=== PATIENT | male | born 1960 | race Caucasian/White ===

== ENCOUNTER 2016-09-05 14:32 | Emergency (ER) | payer BC ==
[2016-09-05 14:43] VITALS: TEMP 96.3
[2016-09-05] MEDS ORDERED: methylPREDNISolone ACETATE 80 MG/ML VIAL IM ONE (14:58)
--- NOTE | 2016-09-05 15:32 | ED.PDOC ---
History of Present Illness - General Chief Complaint: Allergic Reaction Stated Complaint: rash Time Seen by Provider: 09/05/16 14:56 Source: patient Exam Limitations: no limitations Additional Information: RASH ON TRUNK, BUE, BLE. VERY ITCHY. NO DYSPNEA. NO COUGH. TOOK CLARITIN; DIDN'T HELP RASH. POSSIBLE CAUSE: ATE A NEW HONEY TODAY. - History of Present Illness Severity: moderate Improving Factors: nothing Worsening Factors: nothing Allergies/Adverse Reactions: Allergies NO KNOWN ALLERGY Allergy (Verified 09/05/16 14:43) Home Medications: Ambulatory Orders Lipitor 09/05/16 Methylprednisolone [Medrol Dose Wu] 4 mg PO DAILY #1 tab 09/05/16 Triamcinolone 0.5% Cream [Kenalog 0.5% Cream] 15 gm TOP QID PRN #2 tube Review of Systems - Review of Systems Constitutional: Denies: chills, diaphoresis, fever EENTM: Denies: ear pain, throat pain, throat swelling, mouth pain, mouth swelling Respiratory: Denies: cough, short of breath, stridor, wheezing Cardiology: States: no symptoms reported Gastrointestinal/Abdominal: States: no symptoms reported Genitourinary: States: no symptoms reported Musculoskeletal: States: no symptoms reported Skin: States: rash Neurological: States: no symptoms reported Endocrine: States: no symptoms reported Hematologic/Lymphatic: States: no symptoms reported All other Systems: Reviewed and Negative Past Medical History (General) - Vaccination History Hx Influenza Vaccination: No - Social History Hx Tobacco Use: Yes Family Medical History - Family History Father Family History: Unknown Living Status: Unknown Physical Exam - Physical Exam General Appearance: Alert, Comfortable, No apparent distress Eye Exam: bilateral normal Ears, Nose, Throat: hearing grossly normal, normal ENT inspection, normal pharynx Neck: non-tender, full range of motion, supple Respiratory: chest non-tender, lungs clear, normal breath sounds, no respiratory distress, no accessory muscle use Cardiovascular/Chest: normal peripheral pulses, regular rate, rhythm, no edema, no JVD Peripheral Pulses: radial,right: 2+, radial,left: 2+ Gastrointestinal/Abdominal: normal bowel sounds, non tender, soft Extremity: normal range of motion, non-tender 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 SPARING FACE. NO WHEALS. NO PAPULES. NO PUSTULES., rash Lymphatic: no adenopathy Progress - Progress Progress: 09/05/16 15:34 NO EVIDENCE OF ANAPHYLAXIS. Departure - Departure Clinical Impression: Urticaria Disposition: Discharge to Home or Self Care Condition: Good Departure Forms: ED Discharge - Pt. Copy, Patient Portal Self Enrollment Diet: resume usual diet Activity: increase activity as tolerated Prescriptions: Triamcinolone 0.5% Cream [Kenalog 0.5% Cream] 15 gm TOP QID PRN #2 tube PRN Reason: Rash Methylprednisolone [Medrol Dose Wu] 4 mg PO DAILY #1 tab Home Medications: Ambulatory Orders Lipitor 09/05/16 Methylprednisolone [Medrol Dose Wu] 4 mg PO DAILY #1 tab 09/05/16 Triamcinolone 0.5% Cream [Kenalog 0.5% Cream] 15 gm TOP QID PRN #2 tube Additional Instructions: Please return to the ER should you develop any shortness of breath.
[2016-09-05 15:49] VITALS: BP 132/90; O2SAT 95
== END 2016-09-05 15:47 | disposition home or self-care (01) ==
LOC: ER 14:32
DX: L50.9 Urticaria, unspecified (principal); Z87.891 Personal history of nicotine dependence

== ENCOUNTER → 2017-04-14 | Outpatient (CLI) | payer BC | END | disposition home or self-care (01) | LOC: GMAH 10:07 | PROVIDERS: ATTEND Family Medicine | DX: Z12.5 Encounter for screening for malignant neoplasm of prostate (principal); E78.2 Mixed hyperlipidemia ==

== ENCOUNTER → 2017-10-10 | Outpatient (CLI) | payer BC | LOC: GMAH 11:29 | PROVIDERS: ATTEND Family Medicine | DX: Z00.00 Encounter for general adult medical examination without abnormal findings (principal); Z12.5 Encounter for screening for malignant neoplasm of prostate; Z12.11 Encounter for screening for malignant neoplasm of colon ==

== ENCOUNTER → 2019-04-26 | Outpatient (CLI) | payer BC | LOC: GMA MATASK 10:32 | PROVIDERS: ATTEND Family Medicine | DX: Z00.00 Encounter for general adult medical examination without abnormal findings (principal) ==

== ENCOUNTER 2020-02-10 13:16 | Emergency (ER) | payer BC ==
[2020-02-10] MEDS ORDERED: predniSONE 20 MG TAB PO ONE (13:26)
[2020-02-10] MEDS ORDERED: diphenhydrAMINE HCL 25 MG CAP PO ONE (13:27)
[2020-02-10] MEDS ORDERED: FAMOTIDINE 20 MG TAB PO ONE (13:27)
[2020-02-10] MEDS ORDERED: MONTELUKAST 10 MG TAB PO ONE (13:27)
[2020-02-10] MEDS ORDERED: CETIRIZINE HCL 10 MG TAB PO ONE (13:27)
--- NOTE | 2020-02-10 13:36 | ED.PDOC ---
History of Present Illness - General Time Seen by Provider: 02/10/20 13:26 Source: patient Exam Limitations: no limitations - History of Present Illness Initial Comments: The patient is a 59-year-old male presented emergency room secondary to uvular edema related to having eaten the peanut oil last night. He has had this reaction in the past to peanut oil. He did take some Benadryl last night. He did have a rash last night but that is gone away. No shortness of breath or difficulty swallowing but there is significant uvular edema. Vital signs are stable. No evidence of anaphylaxis. The patient is pleasant cooperative and in no acute distress. Timing/Duration: other - 18 hours Severity: moderate Improving Factors: medication Worsening Factors: nothing Associated Symptoms: denies symptoms Allergies/Adverse Reactions: Allergies NO KNOWN ALLERGY Allergy (Verified 09/05/16 14:43) Home Medications: Ambulatory Orders Lipitor 09/05/16 Methylprednisolone [Medrol Dose Wu] 4 mg PO DAILY #1 tab 09/05/16 Triamcinolone 0.5% Cream [Kenalog 0.5% Cream] 15 gm TOP QID PRN #2 tube 09/05/16 predniSONE [Prednisone] 20 mg PO DAILY #3 tab 02/10/20 Review of Systems - Review of Systems Constitutional: States: no symptoms reported EENTM: States: see HPI Respiratory: States: no symptoms reported Cardiology: States: no symptoms reported Gastrointestinal/Abdominal: States: no symptoms reported Genitourinary: States: no symptoms reported Musculoskeletal: States: no symptoms reported Skin: States: see HPI Neurological: States: no symptoms reported Endocrine: States: no symptoms reported All other Systems: No Change from Baseline Past Medical History (General) - Vaccination History Hx Influenza Vaccination: No - Social History Hx Tobacco Use: Yes Family Medical History - Family History Father Family History: Unknown Living Status: Unknown Physical Exam - Physical Exam General Appearance: Alert, Comfortable, No apparent distress Eye Exam: bilateral normal Ears, Nose, Throat: hearing grossly normal, other - Uvular edema is present. No difficulty handling secretions. 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 The patient had already abated most of the allergic reaction with the Benadryl he took last night. The patient was redosed with Benadryl here and also given a dose of Zyrtec, Singulair and prednisone. He will be written for prednisone for the next 3 days. Additionally I would recommend that he take his Zyrtec daily for the next week or so. He needs to keep himself well-hydrated and avoid significant heat exposure. He is to return to the emergency room for significant worsening. Keep routine follow-up with primary care doctor otherwise. [email or web address] [id number] Departure - Departure Clinical Impression: Uvular edema Allergic reaction to food Qualifiers: Encounter type: initial encounter Qualified Code(s): T78.1XXA - Other adverse food reactions, not elsewhere classified, initial encounter Disposition: Discharge to Home or Self Care Condition: Fair Diet: regular diet - Avoid peanut oil Activity: increase activity as tolerated Referrals: Carlos Huang MD [Primary Care Provider] - 1-2 Weeks Prescriptions: predniSONE [Prednisone] 20 mg PO DAILY #3 tab Home Medications: Ambulatory Orders Lipitor 09/05/16 Methylprednisolone [Medrol Dose Wu] 4 mg PO DAILY #1 tab 09/05/16 Triamcinolone 0.5% Cream [Kenalog 0.5% Cream] 15 gm TOP QID PRN #2 tube 09/05/16 predniSONE [Prednisone] 20 mg PO DAILY #3 tab 02/10/20 Additional Instructions: The patient is a 59-year-old male presenting secondary to uvular edema, apparently caused by a food allergy to the peanut oil he had last night. The patient had already abated most of the allergic reaction with the Benadryl he took last night. The patient was redosed with Benadryl here and also given a dose of Zyrtec, Singulair and prednisone. He will be written for prednisone for the next 3 days. Additionally I would recommend that he take his Zyrtec daily for the next week or so. He needs to keep himself well-hydrated and avoid significant heat exposure. He is to return to the emergency room for significant worsening. Keep routine follow-up with primary care doctor otherwise.
[2020-02-10 13:49] VITALS: TEMP 98.7
[2020-02-10 14:07] VITALS: BP 129/86; O2SAT 95
== END 2020-02-10 14:06 | disposition home or self-care (01) ==
LOC: ER 13:16
DX: T78.1XXA Other adverse food reactions, not elsewhere classified, initial encounter (principal); Y92.9 Unspecified place or not applicable
CPT/HCPCS: J7512; Q0163